=== PATIENT | male | born 1975 | race Caucasian/White ===

== ENCOUNTER → 2016-11-22 | Outpatient (CLI) | payer BC ==
--- NOTE | ~2016-11-22 | NM8 ---
[facility] A Service of [facility] & [facility] RADIOLOGY TEXT RESULTS PATIENT: DARRIAN CHOI LOCATION: [facility] : 71 UNIT #: [id number] AGE: [address]: Sukh Enriquez MD SEX: M ORDER DR: [id number] [facility] [address] [place], [place] [address] [id number] O MR#: [id number] Acc #: [id number] NAME: DARRIAN CHOI : 1975 SEX: M STUDY DATE/TIME: 11/22/2016 10:48 UNIT: [facility] ROOM: STUDY DESCRIPTION: NM Bone or Joint Whole Body Attending Physician: Sukh Enriquez M.D. Referring Physician: Sukh Enriquez M.D. Ordering Physician: Sukh Enriquez M.D. Primary Care Physician: Dashawn Land M.D. MEDICAL IMAGING REPORT This report is preliminary unless electronic signature is present EXAM Whole-body bone scan, 11/22/2016. HISTORY Order states osteoarthritis. History sheet states severe arthritis back and bilateral knee pain. [place] about 20 years [place]. No history of cancer. Bilateral knee surgery in 2005. History of broken toes. History of bilateral patellar disfunction, right torn meniscus, left torn knee ligament. L4-5 slipping. 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 COMPARISON STUDIES Bilateral knee radiographs 11/14/2016, MRI left knee [facility] 10/18/2016, MRI right knee [facility] 10/18/2016, MRI lumbar spine [facility] 10/18/2016, chest 2 views 06/11/2016. TECHNIQUE The patient received 29.8 mCi technetium 99m MDP intravenously and anterior and posterior whole body scans are supplemented by spot images of the calvaria and cervical spine, upper extremities, knees, and lumbar spine with obliques. FINDINGS The lumbar spine is unremarkable. There is minimal increased uptake at the approximate T8-9 thoracic level. There is multilevel mild thoracic spondylosis by chest radiography of . Mild left greater than right AC joint uptake is likely arthritic. Solitary focus of abnormal rib uptake is noted at the right lateral ninth rib. No radiographic abnormality is noted on 06/11/2016. Rib fracture is STS. [facility] A Service of [facility] & [facility] RADIOLOGY TEXT RESULTS PAT[facility]: [id number] [birth year] UNIT #: [id number] AGE: [address]: Sukh Enriquez MD SEX: M ORDER DR: most likely. Solitary neoplasm is statistically unlikely. There is bilateral knee uptake predominating in the medial compartments bilaterally with right greater than left Patellofemoral compartment uptake. Radiographic findings are minimal compared to films of 11/14/2016. There is mild bilateral elbow uptake and mild generalized wrist and carpal uptake. Findings are concerning for arthritic changes. Feet are unremarkable except for mild bilateral first MTP joint uptake which is most commonly arthritic. Kidneys are visualized. IMPRESSION 1. No abnormal uptake in the clinically painful lumbar spine. 2. Minimal uptake in the [id number] thoracic spine likely due to spondylosis. 3. Solitary rib focus of uptake on the right laterally detailed above, most likely sequela of fracture statistically. 4. Bilateral knee, elbow, and wrist/carpal uptake, likely arthritic. Dictated by... Sherri Montanez M.D. THIS IS AN ELECTRONICALLY VERIFIED REPORT Sherri Montanez M.D. at 11/23/2016 9:21 AM FLORENCIA/giovany TD: 11/22/2016 14:32 JOB #: [id number] MEDICAL IMAGING REPORT Page 1 of 1 COPY
== END | disposition home or self-care (01) ==
LOC: CNUC 07:30
DX: M19.90 Unspecified osteoarthritis, unspecified site (principal); R94.8 Abnormal results of function studies of other organs and systems
CPT/HCPCS: 78306; A9503